=== PATIENT | male | born 1950 | race Caucasian/White ===

== ENCOUNTER 2025-03-17 17:42 | Outpatient (REF) | payer MEDICARE, SELFPAY ==
--- NOTE | 2025-03-17 16:15 | ORMUBX_PTH ---
PATIENT: Pavel Carrillo LOC: [facility] U#:[id number] AGE/SX: 74/M ROOM: RE03/17/[address]: Gray Herr MD : 1950 BED: DIS: 03/17/2025 SPEC #: [id number] RECD: 03/17/25 18:06 STATUS: MADHAVI REQ #: [id number] DANIEL: 03/17/25 16:[address]: Gray Herr DEPT: Surgical Specimen RECD BY: Jessica Ortiz ENTERED: 03/17/25 18:08 SP TYPE: ORMUBX CAROL DR: Unknown,Unknown Tissues: 1 - MUCOSA, NOS Procedures: GROSS AND MICRO LEVEL 4 Comments: [id number]
== END 2025-03-17 17:43 | disposition home or self-care (01) ==
LOC: LBN 17:42
PROVIDERS: Visit Provider Otolaryngology
DX: N87.0 Mild cervical dysplasia (principal); K13.21 Leukoplakia of oral mucosa, including tongue
CPT/HCPCS: 88305